=== PATIENT | female | born 1985 | race American Indian/Alaskan Native ===

== ENCOUNTER 2017-07-03 20:12 | Emergency (ER) | payer MEDICAID ==
[2017-07-03 20:26] VITALS: BP 123/76
[2017-07-03] MEDS ORDERED: TYLENOL PO ONE (21:00)
[2017-07-04] MEDS ORDERED: MOTRIN ONE (06:19)
== END 2017-07-04 06:20 | disposition home or self-care (01) ==
LOC: ED 20:12
DX: R50.9 Fever, unspecified (principal); Z53.21 Procedure and treatment not carried out due to patient leaving prior to being seen by health care provider
CPT/HCPCS: 87400